=== PATIENT | male | born 1970 | race Caucasian/White ===

== ENCOUNTER 2020-07-30 21:42 | Emergency (ER) | payer BC, OTHER ==
[2020-07-30] MEDS ORDERED: ceFAZolin 1 GM Vial IM ONE (22:49)
[2020-07-30] MEDS ORDERED: Sulfamethoxazole/Trimethoprim 800-160 MG Tab PO ONE (22:49)
[2020-07-30] MEDS ORDERED: Water For Injection, Sterile 20 ML ONE (22:54)
--- NOTE | 2020-07-30 23:35 | CR ---
INDICATION: Slammed left finger in door. TECHNIQUE: X-ray left finger, 3 views. COMPARISON: None available. FINDINGS: The alignment is normal. Negative for acute fracture or dislocation. There is soft tissue swelling. No radiopaque foreign body is seen. IMPRESSION: Soft tissue swelling without acute fracture. Dictated by Dina Mayers MD @ 07/30/2020 11:34:[address] Dina Mayers @ Jul 30 2020 11:34PM
--- NOTE | 2020-07-30 23:45 | EDM.PDOC ---
ED HPI GENERAL MEDICAL PROBLEM - General Chief Complaint: Laceration Stated Complaint: CUT ON LEFT INDEX FINGER Time Seen by Provider: 07/30/20 22:49 - History of Present Illness INITIAL COMMENTS - FREE TEXT/NARRATIVE: HISTORY AND PHYSICAL: History of present illness: Is a 49-year-old gentleman who presents ER today secondary to pain to his left index finger. Patient reports yesterday he got his finger pinched in a door resulting in an injury and laceration to the area that bled for short amount of time. Patient reports today he noticed increasing swelling and pain with movement of the finger. Patient reports some increased redness around the area and was concerned about possible infection. Patient denies any other symptomatology. Patient has any recent fevers, shakes, chills, nausea, vomiting, diarrhea. Patient denies any lymphangitic streaking. Patient reports he does have a little bit of erythema that developed to the distal aspect of his hand at the MCP of his index finger. Review of systems: As per history of present illness and below otherwise all systems reviewed and negative. Past medical history: As per history of present illness and as reviewed below otherwise noncontributory. Surgical history: As per history of present illness and as reviewed below otherwise noncontributory. Social history: No reported history of drug abuse. Family history: As per history of present illness and as reviewed below otherwise noncontributory. Physical exam: This patient was seen and evaluated during the 2019 SARS-CoV-2 novel coronavirus pandemic period. Community viral transmission is ongoing at time of this encounter and the emergency department is operating under pandemic response procedures. Constitutional: Patient is oriented to person, place, and time. Appears well- developed and well-nourished. No distress. HEENT: Moist mucous membranes Head: Normocephalic and atraumatic Eyes: Right eye exhibits no discharge. Left eye exhibits no discharge. No scleral icterus Neck: Normal range of motion. No tracheal deviation present. Cardiovascular: Normal rate and regular rhythm. Pulmonary: Effort normal, no respiratory distress. Abdominal: No distention Musculoskeletal: Normal range of motion Neurologic: Alert and oriented to person, place and time. Skin: [place], warm and dry. Psychiatric: Normal mood and affect. Behavior is normal. Judgment and thought content normal. Nursing note and vital signs have been reviewed Patient's ER physical exam is significant for significant mount of erythema and swelling to the index finger. Patient does have an obvious wound there. I utilized a small 18-gauge needle to puncture the wound and drained a small amount of bloody material. No purulent material was identified. Diagnostics: X-ray left index finger: No acute fracture. Therapeutics: 18-gauge needle used to drain the wound that had started to heal. No purulent material expressed. Small mount of dark red blood expressed out. Assessment and plan: 49-year-old gentleman who presents ER today with swelling to his finger at the area of a injury from yesterday. Although the swelling and redness is likely secondary to the trauma, given the location of the injury, patient will get started on Ancef 1 g IM as well as Bactrim DS 2 tablets p.o. twice daily. Patient be discharged home with Bactrim DS 2 tablets p.o. twice daily x10 days and Keflex 500 mg 3 times a day x10 days. Patient will need a wound check by his primary care physician in 2 days to make sure that it is improving. Reassessment at the time of disposition demonstrates that the patient is in no acute distress. The patient has remained stable throughout the entire ED visit and is without objective evidence for acute process requiring urgent intervention or hospitalization. The patient is stable for discharge, counseling is provided as documented above, discussed symptomatic treatment and specific conditions for return. I have spoken with the patient/caregiver and discussed todays findings, in addition to providing specific details for the plan of care. Questions are answered and there is agreement with the plan. Td up-to-date Definitive disposition and diagnosis as appropriate pending reevaluation and review of above. left index finger Pain Score (Numeric/FACES): 2 - Related Data Allergies Allergy/AdvReac Type Severity Reaction Status Date / Time No Known Allergies Allergy Verified 07/30/20 22:24 Home Meds: Home Meds Sertraline [Zoloft] 50 mg PO DAILY 07/30/20 [History] Sulfamethoxazole/Trimethoprim [Bactrim Ds Tablet] 2 each PO BID #40 tablet 07/30/20 [Rx] cephALEXin [Keflex] 500 mg PO Q8H #30 cap 07/30/20 [Rx] Past Medical History Psychiatric History: Reports: Depression - Infectious Disease History Infectious Disease History: Reports: Chicken Pox - Past Surgical History HEENT Surgical History: Reports: Adenoidectomy, Tonsillectomy Social & Family History - Family History Family Medical History: No Pertinent Family History - Tobacco Use Tobacco Use Status *Q: Light Tobacco User Years of Tobacco use: 30 Packs/Tins Daily: 0.5 - Caffeine Use Caffeine Use: Reports: Coffee - Recreational Drug Use Recreational Drug Use: No ED ROS GENERAL - Review of Systems Review Of Systems: See Below ED EXAM, SKIN/RASH Exam: See Below Course - Vital Signs Last Recorded V/S: Last Vital Signs Temp 97.5 F 07/30/20 22:25 Pulse 87 07/30/20 22:25 Resp 20 07/30/20 22:25 BP 132/79 07/30/20 22:25 Pulse Ox 95 07/30/20 22:25 - Orders/Labs/Meds Meds: Medications Discontinued Medications Generic Name Dose Route Start Last Admin Trade Name Elder PRN Reason Stop Dose Admin Cefazolin Sodium 1 gm 07/30/20 22:49 07/30/20 22:57 Cefazolin 1 Gm Vial IM 07/30/20 22:50 1 gm ONETIME ONE Administration Sterile Water Confirm 07/30/20 22:54 07/30/20 22:58 Sterile Water For Injection Administered 07/30/20 22:55 2.5 mls/hr Dose Administration 20 mls @ as directed .ROUTE .STK-MED ONE Trimethoprim/Sulfamethoxazole 2 tab 07/30/20 22:49 07/30/20 22:57 Sulfamethoxazole/Trimethoprim 800-160 Mg Tab PO 07/30/20 22:50 2 tab ONETIME ONE Administration Departure - Departure Time of Disposition: 23:45 Disposition: Home, Self-Care 01 Condition: Good Clinical Impression: Soft tissue swelling of joint of finger Cellulitis, finger Qualifiers: Laterality: left Qualified Code(s): L03.012 - Cellulitis of left finger - Discharge Information Instructions: Cellulitis, Adult Referrals: Alyssa Medrano DO [Primary Care Provider] - Additional Instructions: You were seen and evaluated in the ER today secondary to pain and swelling to your index finger. The pain and swelling may be secondary to the injury itself however given the open wound, I am concerned that there might be a risk of possible cellulitis/infection. You will be given the following prescriptions, Bactrim DS 2 tablets p.o. twice daily x10 days Keflex 500 mg p.o. 3 times a day x10 days. Please see your family doctor in 2 to 3 days for wound check and cellulitis check. Please return to the ER if have any new signs or symptoms or concerns. The following information is given to patients seen in the emergency department who are being discharged to home. This information is to outline your options for follow-up care. We provide all patients seen in our emergency department with a follow-up referral. The need for follow-up, as well as the timing and circumstances, are variable depending upon the specifics of your emergency department visit. If you don't have a primary care physician on staff, we will provide you with a referral. We always advise you to contact your personal physician following an emergency department visit to inform them of the circumstance of the visit and for follow-up with them and/or the need for any referrals to a consulting specialist. The emergency department will also refer you to a specialist when appropriate. This referral assures that you have the opportunity for follow-up care with a specialist. All of these measure are taken in an effort to provide you with optimal care, which includes your follow-up. Under all circumstances we always encourage you to contact your private physician who remains a resource for coordinating your care. When calling for follow-up care, please make the office aware that this follow-up is from your recent emergency room visit. If for any reason you are refused follow-up, please contact the [facility] Emergency Department at and asked to speak to the emergency department charge nurse. [facility] [address] [place] [id number] [facility] [address] [place] [address] Sepsis Event Note (ED) - Evaluation Sepsis Screening Result: No Definite Risk - Focused Exam Vital Signs: Vital Signs Temp Pulse Resp BP Pulse Ox 07/30/20 22:25 97.5 F 87 20 132/79 95
== END 2020-07-30 23:55 | disposition home or self-care (01) ==
LOC: MW.ED 21:42
DX: L03.012 Cellulitis of left finger (principal); L02.512 Cutaneous abscess of left hand; Z72.0 Tobacco use
CPT/HCPCS: 10060; 73140-26-F1; 73140-F1; 96372; 99283-25; A9270-GY; J0690